=== PATIENT | male | born 1985 | race Caucasian/White ===

== ENCOUNTER 2018-09-20 22:48 | Emergency (ER) | payer BC, OTHER ==
[2018-09-21] MEDS: SOD CHLORIDE 0.9% 1,000 ML IV (00:59)
[2018-09-21] MEDS: ASPIRIN 81 MG TAB PO (00:59)
[2018-09-21] MEDS: NITROGLYCERIN 2% 1 GM OINT PKT TD (01:00)
[2018-09-21 01:08] LABS: ADD MAN DIFF? NO
[2018-09-21 01:09] LABS: BASOPHIL # 0.1 10^3/ul (0.0-0.1); EOSINOPHILS # 0.3 10^3/ul (0.0-0.5); EOSINOPHILS % 3.1 % (0.0-7.0); HEMATOCRIT 49.7 % (42.0-52.0); HEMOGLOBIN 16.6 g/dl (14.0-18.0); LYMPHOCYTES # 2.1 10^3/ul (0.8-2.9); LYMPHOCYTES % 23.8 % (15.0-51.0); MEAN CORPUSCULAR HEMOGLOBIN 27.9 pg (29.0-33.0); MEAN CORPUSCULAR HGB CONC 33.4 g/dl (32.0-37.0); MEAN CORPUSCULAR VOLUME 83.7 fl (82.0-101.0); MEAN PLATELET VOLUME 9.5 fl (7.4-10.4); MONOCYTE # 0.7 10^3/ul (0.3-0.9); MONOCYTES % 7.6 % (0.0-11.0); NEUTROPHIL # 5.5 10^3/ul (1.6-7.5); PLATELET COUNT 294 10^3/UL (140-415); RED BLOOD COUNT 5.94 10^6/ul (4.70-6.10)
[2018-09-21 01:09] LABS: WHITE BLOOD COUNT 8.7 10^3/ul (4.8-10.8)
[2018-09-21 01:26] LABS: ANION GAP 13 (5-13); BLOOD UREA NITROGEN 10 mg/dl (7-20); CALCIUM 9.8 mg/dl (8.4-10.2); CARBON DIOXIDE 26 mmol/L (21-31); CHLORIDE 104 mmol/L (97-110); Estimated GFR > 60 mL/min (>60); GLUCOSE 107 mg/dl (70-220); SODIUM 143 mmol/L (135-144)
[2018-09-21 01:38] LABS: TROPONIN-I < 0.012 ng/ml (0.000-0.120)
[2018-09-21 04:23] LABS: TROPONIN-I < 0.012 ng/ml (0.000-0.120)
== END 2018-09-21 04:35 | disposition home or self-care (01) ==
LOC: E/R 22:48
DX: R07.89 Other chest pain (principal); F17.210 Nicotine dependence, cigarettes, uncomplicated
CPT/HCPCS: 36415; 71045; 80048; 84484; 85025; 93005; 99285-25